=== PATIENT | male | born 1980 | race Caucasian/White ===

== ENCOUNTER 2020-11-25 10:27 | Emergency (ER) | payer SELFPAY ==
--- NOTE | 2020-11-25 10:30 | ED.GENADULT ---
HPI - General Adult General Chief complaint: Dizziness Stated complaint: LIGHT HEADED/TINGLING FINGERS Time Seen by Provider: 11/25/20 10:30 Source: patient and RN notes reviewed Mode of arrival: ambulatory Limitations: no limitations History of Present Illness HPI narrative: 40-year-old male presents to the [facility] with complaints of 30 minutes of feeling very dizzy, finger numbess/tingling and vomited a couple times. Also complains of muscle cramping. States that he felt fine when he woke up this am. Associated symptoms With the dizziness is feeling very lightheaded. Patient reports that he had a similar experience several weeks ago and was just diagnosed with heat exhaustion/sun poisoning. Was seen in [place] at that time. Only thing that makes it a little better is being inside or being in the shade. 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 States he is eating and drinking fine. Denies any past medical or surgical history. Related Data Home Medications Medication Instructions Recorded Confirmed No Home Medications 11/25/20 11/25/20 Allergies Allergy/AdvReac Type Severity Reaction Status Date / Time haloperidol Allergy Unknown Verified 01/17/18 00:09 Review of Systems Review of Systems: All systems reviewed & are unremarkable except as noted in HPI and below Constitutional: Constitutional: Reports as per HPI, Denies chills, Reports fatigue, Denies fever(s) and Reports weakness (Generalized) Eyes: Eyes: Reports no additional eye complaints, Denies change in vision and Denies photophobia ENT: Reports as per HPI, Reports dizziness and Denies sore throat Cardiovascular: Cardiovascular: Reports no additional cardiovascular complaints and Denies chest pain Respiratory: Respiratory: Reports no additional respiratory complaints, Denies cough, Denies dyspnea and Denies wheezing Gastrointestinal: Gastrointestinal: Reports as per HPI, Denies abdominal pain, Reports nausea and Reports vomiting Musculoskeletal: Musculoskeletal: Reports as per HPI and Reports muscle cramps Integumentary/Breasts: Skin/Breast: Reports as per HPI, Denies erythema and Denies rash Neurologic: Denies confusion, Reports dizziness, Denies headache(s), Reports numbness (Fingertips) and Reports weakness Psychiatric: Psychiatric: Reports no additional psychiatric complaints PMFSH Past Medical History Medical History (Updated 11/25/20 @ 11:13 by Iveth Barrientos) Patient denies significant medical history Comments At the time of my signature, I reviewed and agree with the nursing past medical, surgical, social, and family history. There is no relevant family history pertinent to the patient complaint. Exam Const: General: alert and ill appearing acutely Nutritional Appearance: well nourished Orientation/consciousness: patient oriented x3 Limitations: no limitations HENMT: Head: normal to inspection Eyes: Pupils: Equal, round and reactive pupils present Neck: Neck: normal visual inspection Chest: Chest palpation & inspection: normal inspection of the chest Resp: Effort & Inspection: normal respiratory effort and no use of accessory muscles Auscultation: clear to auscultation bilaterally, no crackles, no rales, no rhonchi and no wheezes Cardio: Rate: regular rate Rhythm: regular rhythm GI: GI Palp: Yes Soft to palpation and No Tenderness to palpation present (GI) Back/Spine/Pelvis: Back: no CVA tenderness Skin: General skin exam: normal color and no jaundice Rashes: no rashes Wounds: no wounds Neuro: General: patient oriented x3 and moves all extremities Speech: normal speech Gait exam (Neuro): Normal gait present Extrem: General: normal to inspection and no pedal edema Psych: Appearance: grossly normal and well kempt Mental Status: mental status grossly normal Affect: normal affect Attitude: cooperative Thought content: Yes Normal thought content present Course Vital Signs Vital signs:
[2020-11-25 10:33] VITALS: BP 132/88; PULSE 83; RESP 20; TEMP 36.7; O2SAT 98
--- NOTE | 2020-11-25 10:46 | ECG_ITS ---
Measurements Intervals [place] Rate: 70 P: 24 MA: 169 QRS: 55 QRSD: 102 T: 52 QT: 345 QTc: 373 Interpretive Statements SINUS RHYTHM NORMAL ECG Electronically Signed On 11-25-2020 20:17:30 CDT by Jerrod Oconnell D.O.
[2020-11-25 10:47] VITALS: BP 137/82; PULSE 73
[2020-11-25 10:48] VITALS: BP 128/82; BP 135/85; PULSE 79; PULSE 84
== END 2020-11-25 10:53 | disposition short-term general hospital (02) ==
PROVIDERS: Emergency Provider Nurse Practitioner
DX: E86.0 Dehydration (principal); R42 Dizziness and giddiness
CPT/HCPCS: 93005; 99213; G0463

== ENCOUNTER 2021-01-31 15:05 | Emergency (ER) | payer BC, SELFPAY ==
[2021-01-31 15:13] VITALS: BP 129/83; PULSE 74; RESP 16; TEMP 36.6; O2SAT 98
--- NOTE | 2021-01-31 16:28 | ED.URI ---
HPI - URI/Sore Throat General Chief Complaint: Upper Respiratory Infection Stated Complaint: cough/trouble breathing Source: patient and RN notes reviewed Limitations: no limitations History of Present Illness HPI Narrative: The patient, a longtime smoker/occasional drinker, presents with 3-day worsening of 2 to 4-month history of intermittent, nonproductive cough associated with possible wheezing. It was bad enough he felt he need to be vaccinated a couple days ago[he also tested negative earlier in the month]. No fever, sore throat, earache, [or prior inhaler use], CP, loss of taste/smell, S OB. Symptoms are mild worse in the morning Related Data Allergies Allergy/AdvReac Type Severity Reaction Status Date / Time haloperidol Allergy Unknown Verified 01/17/18 00:09 Review of Systems Review of Systems: General/Constitutional: No weight loss,fever Eyes: N0: Redness,discharge Ears/Nose/Throat: No: Epistaxis,ear discharge Respiratory: Denies: Hemoptysis Gastrointestinal: No Vomiting, Bleeding-rectal Skin: No Lumps, eruption Neurologic: No Focal Weakness,Sz Hematologic: Denies: Petechiae/Purpura Psychiatric: No: Suicida ideationl All Other Systems: Reviewed and Negative PMFSH Past Medical History Medical History (Updated 01/31/21 @ 19:42 by Won Deras MD) Patient denies significant medical history Comments At time of signature, agree with nursing past medical, surgical, social and family history. There is no relevant family history pertinent to the presenting complaint Exam Narrative: General Appearance: Well appearing, Well nourished EYE: PERRLA, Conjunctiva clear Ears: Auditory canal normal, TM normal Nose: Rhinorrhea, Mucousal erythema Mouth/Throat: MM moist, Uvula midline, Pharyngeal erythema Neck: Supple, No adenopathy Respiratory: No respiratory distress, Breath sounds equal, Clear to auscultation Cardiovascular: RRR, No JVD Musculoskeletal: Non tender, Normal strength Skin: Warm, Dry Neurological: A&O x3, CN II-XII intact Psychiatric: Normal mood, Normal affect Course Vital Signs Vital signs: Vital Signs Temperature 97.9 F 01/31/21 15:13 Pulse Rate 74 01/31/21 15:13 Respiratory Rate 16 01/31/21 15:13 Blood Pressure 129/83 01/31/21 15:13 Pulse Oximetry 98 01/31/21 15:13 Temperature 97.9 F 01/31/21 15:13 Pulse Rate 74 01/31/21 15:13 Respiratory Rate 16 01/31/21 15:13 Blood Pressure 129/83 01/31/21 15:13 Pulse Oximetry 98 01/31/21 15:13 Discharge Plan Discharge Clinical Impression: Wheezing-associated respiratory infection (WARI), Cough Patient Disposition: Home, Self-Care Condition: Stable Instructions: Acute Bronchitis (ED) Prescriptions: New azithromycin 250 mg tablet See Rx Instructions .ROUTE .COMPLEX Qty: 6 RF: 0 prednisone 20 mg tablet 60 mg PO DAILY Qty: 9 RF: 0 benzonatate [Tessalon Perles] 100 mg capsule 100 mg PO TID Qty: 20 RF: 2 codeine-guaifenesin 10-100 mg/5 mL liquid 7.5 ml PO BID PRN (Reason: cough) Qty: 118 RF: 0 albuterol sulfate [Ventolin HFA] 90 mcg/actuation HFA aerosol inhaler 2 puff INHALATION QID PRN (Reason: shortness of breath or wheezing) Qty: 1 RF: 1 Follow-up/Referrals: PHYSICIAN,SEARCH ENGINE OPTIMIZATION STRATEGIST [Primary Care Provider] -
== END 2021-01-31 16:36 | disposition home or self-care (01) ==
PROVIDERS: Emergency Provider Emergency Medicine
DX: J98.01 Acute bronchospasm (principal)
CPT/HCPCS: 99213; G0463